=== PATIENT | male | born 1935 | race Caucasian/White ===

== ENCOUNTER → 2016-07-06 | Outpatient (CLI) | payer MEDICARE, BC ==
[2016-07-06 08:16] LABS: HEMOGLOBIN 14.9 gm/dl (14.0-17.5); RED BLOOD COUNT 5.3 M/UL (4.20-5.50); WHITE BLOOD COUNT 6.4 K/UL (4.5-11.0)
== END ==
LOC: LAB 07:05
PROVIDERS: Orthopaedic Surgery
DX: M25.561 Pain in right knee (principal); R68.89 Other general symptoms and signs; R82.90 Unspecified abnormal findings in urine; R79.1 Abnormal coagulation profile; R70.0 Elevated erythrocyte sedimentation rate; R73.09 Other abnormal glucose
CPT/HCPCS: 36415; 80053; 83036; 85027; 85610

== ENCOUNTER → 2020-03-26 | Outpatient (CLI) | payer MEDICARE, BC ==
[~2020-03-26] MED LIST: ACTOS45 MG PO; CQ10; ECOTRIN81 MG PO; ELIQUIS 5 MG TAB5 MG PO; GABAPENTIN300 MG PO; GLUCOTROL 10 MG10 MG PO; HYGROTON TAB 2525 MG PO; IMDUR ER TAB 3030 MG PO; IPRATROPIU0.2 MG/1 M; JANUVIA100 MG PO; LOPRESSOR100 MG PO; MAGOX 400400 MG PO; NORVASC10 MG PO; OMNICEF 300 MG300 MG PO; PLETAL 100 MG100 MG PO; PROSCAR5 MG PO; TRICOR145 MG PO; ZOCOR20 MG PO; ZYRTEC10 MG PO
== END ==
LOC: LAB 07:48
PROVIDERS: Nurse Practitioner Family
DX: N18.30 Chronic kidney disease, stage 3 unspecified (principal); E83.52 Hypercalcemia; E78.5 Hyperlipidemia, unspecified
CPT/HCPCS: 36415; 80053; 80061; 82570; 83970; 84100; 84156

== ENCOUNTER → 2020-05-30 | Outpatient (CLI) | payer MEDICARE, BC | LOC: KOH-I 15:21 | DX: L97.529 Non-pressure chronic ulcer of other part of left foot with unspecified severity (principal); S92.415A Nondisplaced fracture of proximal phalanx of left great toe, initial encounter for closed fracture | CPT/HCPCS: 73620 ==

== ENCOUNTER → 2020-06-26 | Outpatient (CLI) | payer MEDICARE, BC | LOC: LAB 07:59 | PROVIDERS: Internal Medicine Nephrology | DX: N18.30 Chronic kidney disease, stage 3 unspecified (principal); E83.52 Hypercalcemia; E55.9 Vitamin D deficiency, unspecified | CPT/HCPCS: 36415; 80053; 82570; 84156 ==

== ENCOUNTER → 2020-08-22 | Outpatient (CLI) | payer MEDICARE, BC | LOC: KOH-I 10:30 | DX: I11.0 Hypertensive heart disease with heart failure (principal); I50.20 Unspecified systolic (congestive) heart failure; J30.9 Allergic rhinitis, unspecified; N40.0 Benign prostatic hyperplasia without lower urinary tract symptoms; I25.83 Coronary atherosclerosis due to lipid rich plaque; M54.5 Low back pain; E11.40 Type 2 diabetes mellitus with diabetic neuropathy, unspecified; I48.91 Unspecified atrial fibrillation | CPT/HCPCS: 70450 ==

== ENCOUNTER → 2020-10-15 | Outpatient (CLI) | payer MEDICARE, BC | LOC: EXRD 10-14 13:00 → KOH-I 14:43 | DX: N28.1 Cyst of kidney, acquired (principal) | CPT/HCPCS: 76775 ==

== ENCOUNTER 2021-07-30 14:49 | Inpatient (IN) | payer MEDICARE, BC ==
[~2021-07-30] VITALS: Ht 185.4 cm; Wt 121.6 kg
[~2021-07-30 14:49] MED LIST changes: +GLIPIZIDE10 MG PO; -GLUCOTROL 10 MG10 MG PO; -IMDUR ER TAB 3030 MG PO; +ISOSORBIDE MONO60 MG PO; +MAGNESIUM500 MG PO; -MAGOX 400400 MG PO
[2021-07-30 15:24] LABS: HEMOGLOBIN 13.6 gm/dl (14.0-17.5); RED BLOOD COUNT 4.84 M/UL (4.20-5.50); WHITE BLOOD COUNT 10.3 K/UL (4.5-11.0)
[2021-07-30] MEDS ORDERED: XARELTO20 MG PO (18:14)
[2021-07-30] MEDS ORDERED: LISINOPRIL40 MG PO (18:14)
[2021-07-30] MEDS ORDERED: RANEXA500 MG PO (18:15)
[2021-07-30] MEDS ORDERED: CO Q-10200 MG PO (18:15)
[2021-07-30] MEDS ORDERED: LANTUS SOL100 UNIT/1 SQ (18:15)
[2021-07-30] MEDS ORDERED: MULTIVITAMIN1 EACH PO (18:16)
[2021-07-30] MEDS ORDERED: VITAMIN D325 MC6 PO (18:16)
[2021-07-30] MEDS ORDERED: ZYRTEC10 MG PO (18:18)
[2021-07-31 01:55] LABS: HEMOGLOBIN 12.4 gm/dl (14.0-17.5); RED BLOOD COUNT 4.43 M/UL (4.20-5.50); WHITE BLOOD COUNT 9.1 K/UL (4.5-11.0)
[2021-08-01 02:45] LABS: HEMOGLOBIN 12.4 gm/dl (14.0-17.5); RED BLOOD COUNT 4.44 M/UL (4.20-5.50); WHITE BLOOD COUNT 8.3 K/UL (4.5-11.0)
--- NOTE | 2021-08-01 09:30 | NUR ---
PT COMPLAINING OF PAIN TO RIGHT SHOULDER BLADE AND THRU TO CHEST. NOTIFIED DR PHELPS OF FINDINGS.
--- NOTE | 2021-08-01 10:40 | NUR ---
CALLED DR COLLAZO FOR PTS COMPLAINTS PER DR PHELPS REQUESTS.
[2021-08-02 01:42] LABS: HEMOGLOBIN 12.6 gm/dl (14.0-17.5); RED BLOOD COUNT 4.38 M/UL (4.20-5.50); WHITE BLOOD COUNT 8.9 K/UL (4.5-11.0)
[2021-08-02] MEDS ORDERED: BUMETANIDE1 MG PO (15:35)
[2021-08-02] MEDS ORDERED: OMNICEF 300 MG300 MG PO (15:42)
[2021-08-05 13:12] LABS: ORGANISM ID Not indicated. (.); SPECIMEN SOURCE Urine (.); STREPTOCOCCUS PNEUMONIAE AG Negative (Negative)
== END 2021-08-02 16:38 | disposition home health service (06) | DRG 291 ==
LOC: ER1 14:49 → PROG CARE 17:32 → CDU 17:32 → PROG CARE 19:17
PROVIDERS: Internal Medicine; Internal Medicine Nephrology; ADMIT Internal Medicine
PROC: B24BZZZ Ultrasonography of Heart with Aorta (ICD-10-PCS; principal; 2021-07-31)
DX: I13.0 Hypertensive heart and chronic kidney disease with heart failure and stage 1 through stage 4 chronic kidney disease, or unspecified chronic kidney disease (principal); J18.9 Pneumonia, unspecified organism; J96.01 Acute respiratory failure with hypoxia; I50.33 Acute on chronic diastolic (congestive) heart failure; N17.9 Acute kidney failure, unspecified; Z20.822 Contact with and (suspected) exposure to COVID-19; I25.10 Atherosclerotic heart disease of native coronary artery without angina pectoris; R53.83 Other fatigue; E11.22 Type 2 diabetes mellitus with diabetic chronic kidney disease; E11.51 Type 2 diabetes mellitus with diabetic peripheral angiopathy without gangrene; F17.210 Nicotine dependence, cigarettes, uncomplicated; I35.0 Nonrheumatic aortic (valve) stenosis; I73.9 Peripheral vascular disease, unspecified; E55.9 Vitamin D deficiency, unspecified; I48.0 Paroxysmal atrial fibrillation; E66.9 Obesity, unspecified; R53.81 Other malaise; D64.9 Anemia, unspecified; N18.30 Chronic kidney disease, stage 3 unspecified; E78.5 Hyperlipidemia, unspecified; N40.0 Benign prostatic hyperplasia without lower urinary tract symptoms; Z95.5 Presence of coronary angioplasty implant and graft; Z98.890 Other specified postprocedural states; Z88.8 Allergy status to other drugs, medicaments and biological substances; Z80.1 Family history of malignant neoplasm of trachea, bronchus and lung; Z79.899 Other long term (current) drug therapy; Z79.82 Long term (current) use of aspirin; Z79.01 Long term (current) use of anticoagulants; Z79.4 Long term (current) use of insulin; Z68.35 Body mass index [BMI] 35.0-35.9, adult
CPT/HCPCS: ECHO; 0240U; 36415; 36600; 71045; 80053; 81001; 82550; 82553; 82803; 82962; 83036; 83540; 83550; 83605; 83735; 83880; 84484; 85025; 85027; 85652; 86140; 87040; 87086; 87278; 87899; 93005; 93306; 94640; 94664; 94760; 96374; 96375; 96376; 99285; J0696; Q9957

== ENCOUNTER 2021-08-25 14:16 | Inpatient (IN) | payer MEDICARE, BC ==
[~2021-08-25] VITALS: Ht 185.4 cm; Wt 120.5 kg
[~2021-08-25 14:16] MED LIST changes: +BUMETANIDE1 MG PO; +CHLORTHALIDONE25 MG PO; +CO Q-10200 MG PO; +LANTUS SOL100 UNIT/1 SQ; +LISINOPRIL40 MG PO; +MULTIVITAMIN1 EACH PO; +RANEXA500 MG PO; +XARELTO20 MG PO
[2021-08-25 15:09] LABS: HEMOGLOBIN 8.2 gm/dl (14.0-17.5); RED BLOOD COUNT 3.02 M/UL (4.20-5.50); WHITE BLOOD COUNT 8.6 K/UL (4.5-11.0)
[2021-08-25] MEDS ORDERED: TRAMADOL HCL50 MG PO (18:16)
--- NOTE | 2021-08-25 22:58 | NUR ---
PT REFUSES TO TAKE HOSPITAL'S INSULIN. PT BG WAS 342 AND WAS ORDERED TO TAKE 10 UNITS OF HUMALOG. PT REFUSED AND SAID HE WOULD ONLY TAKE HIS HOME INSULIN, WHICH WAS [facility]. RN EXPLAINED THE DIFFERENCE IN THE TYPES OF INSULIN, PT STILL REFUSED.
[2021-08-26 01:28] LABS: HEMOGLOBIN 8.5 gm/dl (14.0-17.5); RED BLOOD COUNT 3.23 M/UL (4.20-5.50); WHITE BLOOD COUNT 7.9 K/UL (4.5-11.0)
--- NOTE | 2021-08-26 13:19 | NUR ---
PTS B/P 81/52, STATES SHE GAVE PT HOME MED DOSE OF LISINOPRIL 40 MG PO "EARLIER" SHE STATES HE TAKES AT HOME. EXPLAINED MD HAD HELD MEDICATION WHILE PT HERE AND THAT NURSE SHOULD BE NOTIFIED PRIOR TO GIVING PT MEDICATION TO ENSURE HE IS SUPPOSE TO TAKE MED WITH VOICED UNDERSTANDING. MD NOTIFIED. ALSO, PT AND WANT HOME MEDS TO BE GIVEN TO PT AND NOT OUR MEDS AND WANTED PHARMACY TO TAKE MEDS TO DISPENSE WHILE PT ADMITED, PHARMASIST NOTIFIED AND STATES WOULD COME TALK TO PT AND FAMILY
[2021-08-26 20:37] LABS: HEMOGLOBIN 8.4 gm/dl (14.0-17.5)
[2021-08-27 02:21] LABS: HEMOGLOBIN 8.3 gm/dl (14.0-17.5); RED BLOOD COUNT 3.02 M/UL (4.20-5.50)
--- NOTE | 2021-08-27 08:50 | NUR ---
PT NTD WITH NO APICAL HEART BEAT OR RESPIRATIONS, VERIFIED WITH LEROY HARRIS RN
--- NOTE | 2021-08-27 08:56 | NUR ---
DR. MILLER CAME TO PTS BEDSIDE TO ASSESSED PT
--- NOTE | 2021-08-27 08:57 | NUR ---
FAMILY CALLED AND NOTIFIED PT HAD , STATES THEY WANT TO SEE PT BEFORE HOME CALLED
--- NOTE | 2021-08-27 09:45 | NUR ---
MARCEL CONTACTED AND STATES MAY RELEASE BODY
--- NOTE | 2021-08-27 10:27 | NUR ---
[facility] NOTIFIED OF PT EXPIRING AND NEED TO BE TRANSFERED
== END 2021-08-27 11:13 | disposition expired | DRG 378 ==
LOC: ER1 14:16 → PROG CARE 16:59 → CDU 16:59 → PROG CARE 20:41
PROVIDERS: Internal Medicine; Physician Assistant; ADMIT Internal Medicine
PROC: 30233N1 Transfusion of Nonautologous Red Blood Cells into Peripheral Vein, Percutaneous Approach (ICD-10-PCS; principal; 2021-08-25)
DX: K92.1 Melena (principal); I13.0 Hypertensive heart and chronic kidney disease with heart failure and stage 1 through stage 4 chronic kidney disease, or unspecified chronic kidney disease; I50.32 Chronic diastolic (congestive) heart failure; Z20.822 Contact with and (suspected) exposure to COVID-19; Z66 Do not resuscitate; N17.9 Acute kidney failure, unspecified; D62 Acute posthemorrhagic anemia; E87.2 Acidosis; I47.1 Supraventricular tachycardia; N18.30 Chronic kidney disease, stage 3 unspecified; E11.22 Type 2 diabetes mellitus with diabetic chronic kidney disease; I95.1 Orthostatic hypotension; N40.0 Benign prostatic hyperplasia without lower urinary tract symptoms; E66.9 Obesity, unspecified; E55.9 Vitamin D deficiency, unspecified; E78.5 Hyperlipidemia, unspecified; I27.20 Pulmonary hypertension, unspecified; I25.119 Atherosclerotic heart disease of native coronary artery with unspecified angina pectoris; I35.0 Nonrheumatic aortic (valve) stenosis; E11.51 Type 2 diabetes mellitus with diabetic peripheral angiopathy without gangrene; D63.1 Anemia in chronic kidney disease; I48.91 Unspecified atrial fibrillation; H91.93 Unspecified hearing loss, bilateral; Z79.01 Long term (current) use of anticoagulants; Z95.5 Presence of coronary angioplasty implant and graft; Z88.8 Allergy status to other drugs, medicaments and biological substances; Z88.6 Allergy status to analgesic agent; Z79.82 Long term (current) use of aspirin; Z87.891 Personal history of nicotine dependence; Z98.890 Other specified postprocedural states; I25.2 Old myocardial infarction; Z68.35 Body mass index [BMI] 35.0-35.9, adult
CPT/HCPCS: 36415; 71045; 71046; 80048; 80053; 82272; 82550; 82553; 82962; 83605; 83735; 83880; 84132; 84484; 85014; 85018; 85025; 85027; 85610; 86850; 86900; 86901; 86920; 93005; 96374; 99285; C9113; J2185; J2405; P9016